=== PATIENT | female | born 1955 | race Caucasian/White ===

== ENCOUNTER → 2020-12-11 | Outpatient (CLI) | payer MEDICARE | END | disposition home or self-care (01) | LOC: CFH 09:40 | PROVIDERS: ATTEND Nurse Practitioner Primary Care | DX: Z13.6 Encounter for screening for cardiovascular disorders (principal); E78.2 Mixed hyperlipidemia; R29.810 Facial weakness; R42 Dizziness and giddiness; Z72.0 Tobacco use; Z79.899 Other long term (current) drug therapy | CPT/HCPCS: 70450; 75571 ==